=== PATIENT | male | born 1970 | race Caucasian/White ===

== ENCOUNTER 2020-09-29 07:49 | Outpatient (CLI) | payer OTHER ==
[2020-09-29] MEDS ORDERED: Iopamidol 370 76% 100 ML VIAL ONE (12:26)
== END 2020-09-29 07:50 | disposition home or self-care (01) ==
LOC: CT 07:49
PROVIDERS: ATTEND Internal Medicine Gastroenterology
DX: K50.00 Crohn's disease of small intestine without complications (principal); N28.1 Cyst of kidney, acquired
CPT/HCPCS: 74178; Q9967